=== PATIENT | male | born 1950 | race African-American/Black ===

== ENCOUNTER 2017-03-03 20:13 | Emergency (ER) | payer MEDICARE ==
[~2017-03-03 20:13] MED LIST: IBUP800T23 PO; METH750T2 PO
[2017-03-03 20:15] VITALS: BP 195/88; PULSE 48; PULSE 58; RESP 16; TEMP 98.4; O2SAT 97
--- NOTE | 2017-03-03 20:46 | PD ---
HPI Chief Complaint: Edema Time Seen by Provider: 20:38 Travel History International Travel<30 days: No Contact w/Intl Traveler<30days: No Traveled to known affect area: No History of Present Illness HPI This is a 66-year-old male who presents to the emergency department with left leg swelling, constant, moderate severity, going on for 2 weeks. He says it started right after he was leaning up against a trailer at work and he heard a pop in his knee. He went to see his doctor right afterwards and he thought it was some inflammation he sent him home. He says that the swelling has gotten worse over the past 2 weeks, and he has minimal pain but he is concerned about how large his leg is getting. He denies any associated chest pain or trouble breathing. He did recently drive from [place] to visit here last week that his swelling started before that. [facility] Past Medical History Narrative Medical hypertension Social History Tobacco Use: No Allergies-Medications (Allergen,Severity, Reaction): Coded Allergies: No Known Allergies (Unverified , 03/03/17) Reported Meds & Prescriptions Reported Meds & Active Scripts Active Robaxin (Methocarbamol) 750 Mg Tab 750 Mg PO QID Ibuprofen 800 Mg Tab 800 Mg PO TID 10 Days Review of Systems Except as stated in HPI: all other systems reviewed are Neg Physical Exam Narrative GENERAL:Well appearing, no acute distress SKIN: Focused skin assessment warm and dry. HEAD: Atraumatic. Normocephalic. EYES: Pupils equal and round. No injection or drainage. ENT: Moist mucous membranes NECK: Trachea midline. Jugular venous distention. CARDIOVASCULAR: Regular rate and rhythm. No murmur appreciated. 2+ bilateral pitting edema in the lower extremities RESPIRATORY: Clear to auscultation. Breath sounds equal bilaterally. GASTROINTESTINAL: Abdomen soft, non-tender, nondistended. MUSCULOSKELETAL: Marked swelling of the left lower extremity with enlargement of the calf compared to the right NEUROLOGICAL: Awake and alert. No obvious cranial nerve deficits. Moving all extremities. PSYCHIATRIC: Appropriate mood and affect; insight and judgment normal. Data Data Last Documented VS Vital Signs Date Time Temp Pulse Resp B/P Pulse Ox O2 Delivery O2 Flow Rate FiO2 03/03/17 21:14 184/110 03/03/17 20:15 98.4 58 16 97 Room Air Orders Complete Blood Count With Diff (03/03/17 20:44) Comprehensive Metabolic Panel (03/03/17 20:44) B-Type Natriuretic Peptide (03/03/17 20:44) Us Leg Venous Doppler (03/03/17 ) Labs Laboratory Tests Test 03/03/17 21:25 White Blood Count 7.1 TH/MM3 Red Blood Count 5.02 MIL/MM3 Hemoglobin 15.3 GM/DL Hematocrit 45.4 % Mean Corpuscular Volume 90.5 FL Mean Corpuscular Hemoglobin 30.6 PG Mean Corpuscular Hemoglobin 33.8 % Concent Red Cell Distribution Width 13.1 % Platelet Count 199 TH/MM3 Mean Platelet Volume 10.4 FL Neutrophils (%) (Auto) 40.1 % Lymphocytes (%) (Auto) 47.6 % Monocytes (%) (Auto) 9.5 % Eosinophils (%) (Auto) 2.2 % Basophils (%) (Auto) 0.6 % Neutrophils # (Auto) 2.9 TH/MM3 Lymphocytes # (Auto) 3.4 TH/MM3 Monocytes # (Auto) 0.7 TH/MM3 Eosinophils # (Auto) 0.2 TH/MM3 Basophils # (Auto) 0.0 TH/MM3 CBC Comment DIFF FINAL Differential Comment Sodium Level 141 MEQ/L Potassium Level 3.9 MEQ/L Chloride Level 104 MEQ/L Carbon Dioxide Level 28.5 MEQ/L Anion Gap 9 MEQ/L Blood Urea Nitrogen 11 MG/DL Creatinine 1.03 MG/DL Estimat Glomerular Filtration 88 ML/MIN Rate Random Glucose 122 MG/DL Calcium Level 9.1 MG/DL Total Bilirubin 0.7 MG/DL Aspartate Amino Transf 38 U/L (AST/SGOT) Alanine Aminotransferase 28 U/L (ALT/SGPT) Alkaline Phosphatase 77 U/L B-Type Natriuretic Peptide 58 PG/ML Total Protein 8.2 GM/DL Albumin 3.9 GM/DL [facility] Medical Decision Making Medical Screen Exam Complete: Yes Emergency Medical Condition: Yes Interpretation(s) Afebrile, hypertensive No leukocytosis Electrolytes are reassuring BNP is normal Differential Diagnosis DVT, congestive heart failure, renal failure Narrative Course This is a 66-year-old male who presents to the emergency department with swelling of his left lower extremity. On exam he has edema of both legs, left greater than right. He was placed on a monitor and an IV was established. Labs are obtained which were reassuring including a normal BNP. Ultrasound was obtained which was negative for DVT. I think patient can be safely discharged and I suspect he has dependent edema. He was advised to get compression stockings and he was given a short course of Lasix. Patient was also advised to have repeat ultrasound performed in 10 days. Diagnosis Primary Impression: Edema Qualified Code: R60.9 - Edema, unspecified type Patient Instructions: General Instructions Additional Instructions: If you develop severe chest pain, shortness of breath, sweating, lightheadedness , dizziness or difficulty breathing return to the emergency department immediately. You should have a repeat ultrasound in 10 days if your symptoms are not improving. Med/Other Pt SpecificInfo: Prescription(s) given Scripts Potassium Chloride Microencaps 20 Meq Tab20 Meq PO DAILY #5 TAB Ref 0 Prov:Joelle Hassan MD 03/03/17 Furosemide (Lasix)20 Mg Tab20 Mg PO DAILY #5 TAB Ref 0 Prov:Joelle Hassan MD 03/03/17 Disposition: 01 DISCHARGE HOME Condition: Stable Joelle Hassan MD Mar 03, 2017 20:46
[2017-03-03 21:14] VITALS: BP 184/110
[2017-03-03 22:09] LABS: AUTOMATED NEUTROPHIL # 2.9 TH/MM3 (1.8-7.7); BASOPHIL % 0.6 % (0.0-2.0); EOSINOPHIL # 0.2 TH/MM3 (0-0.4); EOSINOPHIL % 2.2 % (0.0-4.0); HEMATOCRIT 45.4 % (39.0-51.0); HEMO FLAGS DIFF FINAL; LYMPH % 47.6 % (9.0-44.0); LYMPHOCYTE # 3.4 TH/MM3 (1.0-4.8); MEAN CELL VOLUME 90.5 FL (80.0-100.0); MEAN CORPUSCULAR HEMOGLOBIN 30.6 PG (27.0-34.0); MEAN CORPUSCULAR HGB CONC 33.8 % (32.0-36.0); MONO % 9.5 % (0.0-8.0); NEUT % 40.1 % (16.0-70.0); PLATELET COUNT 199 TH/MM3 (150-450); RED BLOOD COUNT 5.02 MIL/MM3 (4.50-5.90); RED CELL DISTRIBUTION WIDTH 13.1 % (11.6-17.2); WHITE BLOOD COUNT 7.1 TH/MM3 (4.0-11.0)
[2017-03-03 22:32] LABS: ALT (GPT) 28 U/L (12-78)
[2017-03-03 22:34] LABS: ALKALINE PHOSPHATASE 77 U/L (45-117); TOTAL BILIRUBIN ADULT 0.7 MG/DL (0.2-1.0)
[2017-03-03 22:37] LABS: ANION GAP 9 MEQ/L (5-15); AST (GOT) 38 U/L (15-37); BICARBONATE 28.5 MEQ/L (21.0-32.0); BLOOD UREA NITROGEN 11 MG/DL (7-18); CHLORIDE 104 MEQ/L (98-107); GLOMERULAR FILTRATION RATE 88 ML/MIN (>89); SODIUM (NA) 141 MEQ/L (136-145)
[2017-03-03 22:38] LABS: POTASSIUM 3.9 MEQ/L (3.5-5.1)
--- NOTE | 2017-03-03 23:22 | RADRPT ---
EXAM DATE/TIME: 03/03/2017 22:08 [place] COMPARISON: No previous studies available for comparison. INDICATIONS : Left leg swelling. MEDICAL HISTORY : Left leg swelling. SURGICAL HISTORY : None. ENCOUNTER: Initial ACUITY: 2 weeks PAIN SCORE: 0/10 LOCATION: Left leg. TECHNIQUE: Venous ultrasound of the leg was performed from the inguinal ligament to the proximal calf. Real-hayde e, color Doppler and spectral tracing, compression and augmentation techniques were used. FINDINGS: There is normal compressibility of the deep venous system from the inguinal region to the proximal ca lf. No echogenic clot is seen in the lumen of the common femoral, femoral, popliteal, and posterior tibial veins. There is a normal response of the venous system to proximal and distal augmentation an d respiration. CONCLUSION: Normal examination. Ariel Hyatt MD on March 03, 2017 at 23:21 Board Certified Radiologist. This report was verified electronically.
[2017-03-03] MEDS ORDERED: FURO1TAB62 PO (23:34)
[2017-03-03] MEDS ORDERED: POTA20TA5 PO (23:34)
[2017-03-03 23:50] VITALS: BP 145/77
== END 2017-03-04 | disposition home or self-care (01) ==
LOC: NEPD 20:13
DX: R60.0 Localized edema (principal); I10 Essential (primary) hypertension
CPT/HCPCS: 80053; 83880; 85025; 93971; 99284